=== PATIENT | female | born 1975 | race Asian ===

== ENCOUNTER → 2016-05-15 | Outpatient (CLI) | payer BC ==
[~2016-05-15] VITALS: Ht 30.5 cm; Wt 0.5 kg
[~2016-05-15] MED LIST: Lidocaine 1% Plain 30 ml INJ ONE; Sodium Bicarbonate 8.4% 50ml Inj IV ONE
--- NOTE | 2016-05-19 14:06 | Diagnostic Imaging Report ---
Indication: Breast mass Comprison: None Procedure: Informed consent for the procedure was obtained. The risks, benefits, and complications of the procedure were explained to the patient. We were given verbal and written consent to proceed. The right breast was prepped and draped in the usual sterile fashion. Lidocaine was administered for local anesthesia. A dermatotomy was made. Using an 14-gauge core biopsy device several core biopsies were obtained under direct sonographic guidance. The core specimens were placed in formalin and sent to pathology. The biopsy device was used to insert a metallic clip at the site of the biopsy. The biopsy device was then removed. Pressure was held at the site of the puncture until hemostasis was achieved. There were no complications. The patient tolerated the procedure well. Intraprocedural imaging: There are 2 hypoechoic lesions present adjacent to each other at 10:00 o'clock. The first is 11 x 5 mm. The second adjacent to the first mass is 4 mm in size. Both of the masses were biopsied multiple times. The larger mass is labeled #1. The smaller mass is labeled #2. Impression: Apparently successful ultrasound guided Core biopsy of a 2 right breast lesions at 10:00. Pathology results are pending.
== END | disposition home or self-care (01) ==
LOC: ULS 13:09
DX: D24.1 Benign neoplasm of right breast (principal)
CPT/HCPCS: 19083; 19084; 76942; J2001; J3490